=== PATIENT | female | born 1955 | race Caucasian/White ===

== ENCOUNTER 2016-08-20 08:37 | Outpatient (RCR) | payer OTHER ==
--- OUTSIDE RECORDS SUMMARY | 2016-08-20 08:40 | XMS REPORT | Continuity of Care Document ---
Author Author [facility] Organization [facility] Address Unknown Phone Unavailable Care Team Providers Care Process Helper Name Role Phone LAMONTE SCHAFER MD PCP Insurance Providers Payer Name Policy Number Subscriber Name Relationship [employer] [id number] Joseph Hull 20 Self / Same As Patient Problems No known problems or medical conditions. Medications No known medications. Social History Social History Problem Response Recorded Date/Time Recent Foreign Travel N [place] 07/12/2014 8:51am Hospital Discharge Instructions No hospital discharge instructions. Plan of Care No plan of care. Functional Status No functional status results. Allergies, Adverse Reactions, Alerts No known allergies. Immunizations No immunization records. Vital Signs No known vital signs results. Results Laboratory Results Test Name Result Units Flags Reference Collection Date/Time Result Date/ Time Comments White Blood Count 10.1 10^3/uL 4.3-11.0 07/12/2014 9:09am 07/12/2014 9: 13am Red Blood Count 4.85 10^6/uL 4.35-5.85 07/12/2014 9:09am 07/12/2014 9: 13am Hemoglobin 13.9 G/DL 11.5-16.0 07/12/2014 9:09am 07/12/2014 9:13am Hematocrit 42 % 35-52 07/12/2014 9:09am 07/12/2014 9:13am Mean Corpuscular Volume 86 FL 80-99 07/12/2014 9:0907/12/2014 9: 13am Mean Corpuscular Hemoglobin 29 PG 25-34 07/12/2014 9:0907/12/2014 9: 13am Mean Corpuscular Hemoglobin Concent 33 G/DL 32-36 07/12/2014 9:0908/2013 9:13am Red Cell Distribution Width 13.4 % 10.0-14.5 07/12/2014 9:092013 9:13am Platelet Count 281 10^3/uL 130-400 07/12/2014 9:07/12/2014 9:13am Mean Platelet Volume 10.7 FL H 7.4-10.4 07/12/2014 9:07/12/2014 9: 13am Neutrophils (%) (Auto) 77 % H 42-75 07/12/2014 9:07/12/2014 9:13am Lymphocytes (%) (Auto) 14 % 12-44 07/12/2014 9:07/12/2014 9:13am Monocytes (%) (Auto) 6 % 0-12 07/12/2014 9:07/12/2014 9:13am Eosinophils (%) (Auto) 3 % 0-10 07/12/2014 9:07/12/2014 9:13am Basophils (%) (Auto) 0 % 0-10 07/12/2014 9:07/12/2014 9:13am Neutrophils # (Auto) 7.8 X 10^3 1.8-7.8 07/12/2014 9:07/12/2014 9: 13am Lymphocytes # (Auto) 1.4 X 10^3 1.0-4.0 07/12/2014 9:07/12/2014 9: 13am Monocytes # (Auto) 0.6 X 10^3 0.0-1.0 07/12/2014 9:07/12/2014 9: 13am Eosinophils # (Auto) 0.3 10^3/uL 0.0-0.3 07/12/2014 9:0907/12/2014 9 :13am Basophils # (Auto) 0.0 10^3/uL 0.0-0.1 07/12/2014 9:07/12/2014 9: 13am Sodium Level 137 MMOL/L 135-145 07/12/2014 9:07/12/2014 9:53am Potassium Level 4.3 MMOL/L 3.6-5.0 07/12/2014 9:07/12/2014 9:53am Chloride Level 103 MMOL/L 98-107 07/12/2014 9:07/12/2014 9:53am Carbon Dioxide Level 25 MMOL/L 21-32 07/12/2014 9:07/12/2014 9: 53am Blood Urea Nitrogen 10 MG/DL 7-18 07/12/2014 9:07/12/2014 9:53am Creatinine 0.71 MG/DL 0.60-1.30 07/12/2014 9:07/12/2014 9:53am BUN/Creatinine Ratio 14 07/12/2014 9:07/12/2014 9:53am Estimat Glomerular Filtration Rate > 60 07/12/2014 9:2013 9:53am GFR INTERPRETIVE DATA UNITS FOR ESTIMATED GFR (eGFR): mL/min/1.73 M2 REFERENCE RANGE FOR ESTIMATED GFR (eGFR) eGFR NORMAL eGFR >60 MODERATELY DECREASED eGFR 30-59 SEVERLY DECREASED eGFR 15-29 KIDNEY FAILURE <15 (OR DIALYSIS) Glucose Level 175 MG/DL H 70-105 07/12/2014 9:07/12/2014 9:53am Calcium Level 9.5 MG/DL 8.5-10.1 07/12/2014 9:07/12/2014 9:53am Total Bilirubin 0.5 MG/DL 0.1-1.0 07/12/2014 9:07/12/2014 9:53am Alkaline Phosphatase 73 U/L 40-136 07/12/2014 9:07/12/2014 9:53am Aspartate Amino Transf (AST/SGOT) 17 U/L 5-34 07/12/2014 9:2013 9:53am Alanine Aminotransferase (ALT/SGPT) 33 U/L 0-55 07/12/2014 9:07/12 9:53am Total Protein 6.9 G/DL 6.4-8.2 07/12/2014 9:09am 07/12/2014 9:53am Albumin 4.1 G/DL 3.2-4.5 07/12/2014 9:09am 07/12/2014 9:53am Thyroid Stimulating Hormone (TSH) 1.00 UIU/ML 0.35-4.94 07/12/2014 9: 09am 07/12/2014 10:13am Ferritin 189 H NG/ML 15-150 07/12/2014 9:09am 07/13/2014 7:40am Iron Level 71 UG/DL 35-180 07/12/2014 9:09am 07/13/2014 7:40am Transferrin % Saturation 21 % 15-50 07/12/2014 9:09am 07/13/2014 7: 40am Total Iron Binding Capacity 337 UG/DL 280-380 07/12/2014 9:09am 2013 7:40am Procedures No known history of procedures. Encounters Encounter Location Date/Time Discharged Recurring [facility] 07/12/14 8:52am
[2016-08-20 09:06] LABS: BASOPHILS % (AUTO) 0 % (0-10); EOSINOPHILS # (AUTO) 0.3 10^3/uL (0.0-0.3); EOSINOPHILS % (AUTO) 3 % (0-10); LYMPHOCYTES # (AUTO) 1.7 X 10^3 (1.0-4.0); LYMPHOCYTES % (AUTO) 17 % (12-44); MEAN CORPUSCULAR HEMOGLOBIN 29 PG (25-34); MEAN CORPUSCULAR HGB CONC 33 G/DL (32-36); MEAN CORPUSCULAR VOLUME 86 FL (80-99); MEAN PLATELET VOLUME 10.6 FL (7.4-10.4); MONOCYTES # (AUTO) 0.7 X 10^3 (0.0-1.0); MONOCYTES % (AUTO) 7 % (0-12); NEUTROPHILS # (AUTO) 7.3 X 10^3 (1.8-7.8); NEUTROPHILS % (AUTO) 74 % (42-75); PLATELET COUNT 271 10^3/uL (130-400); RED BLOOD COUNT 4.75 10^6/uL (4.35-5.85); RED CELL DISTRIBUTION WIDTH 13.5 % (10.0-14.5); WHITE BLOOD COUNT 9.9 10^3/uL (4.3-11.0)
[2016-08-20 09:54] LABS: ALANINE AMINOTRANSFERASE 79 U/L (0-55); ALBUMIN 4.2 G/DL (3.2-4.5); ANION GAP 11 MMOL/L (5-14); ASPARTATE AMINO TRANSFERASE 64 U/L (5-34); BILIRUBIN,TOTAL 0.5 MG/DL (0.1-1.0); BLOOD UREA NITROGEN 9 MG/DL (7-18); BUN/CREATININE RATIO 11; CARBON DIOXIDE 25 MMOL/L (21-32); CHLORIDE 101 MMOL/L (98-107); CREATININE SERUM 0.79 MG/DL (0.60-1.30); GFR ESTIMATED > 60; GLUCOSE 272 MG/DL (70-105); POTASSIUM 4.4 MMOL/L (3.6-5.0); SODIUM 137 MMOL/L (135-145); TOTAL PROTEIN 6.8 G/DL (6.4-8.2)
[2016-08-20 10:13] LABS: THYROID STIMULATING HORMONE 2.03 UIU/ML (0.35-4.94)
== END 2016-11-18 | disposition home or self-care (01) ==
LOC: ONC 08:37
PROVIDERS: ATTEND Internal Medicine Hematology & Oncology
DX: Z08 Encounter for follow-up examination after completed treatment for malignant neoplasm (principal); Z85.3 Personal history of malignant neoplasm of breast; E89.0 Postprocedural hypothyroidism; E11.9 Type 2 diabetes mellitus without complications; F32.9 Major depressive disorder, single episode, unspecified; Z79.899 Other long term (current) drug therapy; Z92.21 Personal history of antineoplastic chemotherapy; Z92.3 Personal history of irradiation
CPT/HCPCS: 36415; 80053; 84443; 85025; 86300; 99213

== ENCOUNTER 2017-02-18 08:35 | Outpatient (RCR) | payer OTHER ==
[2017-02-18 09:00] LABS: BASOPHILS % (AUTO) 0 % (0-10); EOSINOPHILS # (AUTO) 0.3 10^3/uL (0.0-0.3); EOSINOPHILS % (AUTO) 3 % (0-10); LYMPHOCYTES # (AUTO) 1.9 X 10^3 (1.0-4.0); LYMPHOCYTES % (AUTO) 19 % (12-44); MEAN CORPUSCULAR HEMOGLOBIN 29 PG (25-34); MEAN CORPUSCULAR HGB CONC 33 G/DL (32-36); MEAN CORPUSCULAR VOLUME 88 FL (80-99); MEAN PLATELET VOLUME 10.8 FL (7.4-10.4); MONOCYTES # (AUTO) 0.6 X 10^3 (0.0-1.0); MONOCYTES % (AUTO) 6 % (0-12); NEUTROPHILS # (AUTO) 7.1 X 10^3 (1.8-7.8); NEUTROPHILS % (AUTO) 71 % (42-75); PLATELET COUNT 286 10^3/uL (130-400); RED BLOOD COUNT 4.63 10^6/uL (4.35-5.85); RED CELL DISTRIBUTION WIDTH 13.6 % (10.0-14.5)
[2017-02-18 09:33] LABS: ALANINE AMINOTRANSFERASE 27 U/L (0-55); ALBUMIN 4.1 GM/DL (3.2-4.5); ANION GAP 9 MMOL/L (5-14); ASPARTATE AMINO TRANSFERASE 20 U/L (5-34); BILIRUBIN,TOTAL 0.5 MG/DL (0.1-1.0); BLOOD UREA NITROGEN 9 MG/DL (7-18); BUN/CREATININE RATIO 12; CALCIUM 9.3 MG/DL (8.5-10.1); CARBON DIOXIDE 28 MMOL/L (21-32); CHLORIDE 103 MMOL/L (98-107); CREATININE SERUM 0.73 MG/DL (0.60-1.30); GFR ESTIMATED > 60; GLUCOSE 132 MG/DL (70-105); POTASSIUM 4.6 MMOL/L (3.6-5.0); SODIUM 140 MMOL/L (135-145)
[2017-02-18 09:53] LABS: THYROID STIMULATING HORMONE 0.39 UIU/ML (0.35-4.94)
== END 2017-05-11 | disposition home or self-care (01) ==
LOC: ONC 08:35
PROVIDERS: ATTEND Internal Medicine Hematology & Oncology
DX: Z08 Encounter for follow-up examination after completed treatment for malignant neoplasm (principal); Z85.3 Personal history of malignant neoplasm of breast; E89.0 Postprocedural hypothyroidism; E11.9 Type 2 diabetes mellitus without complications; F32.9 Major depressive disorder, single episode, unspecified; Z79.899 Other long term (current) drug therapy; Z92.21 Personal history of antineoplastic chemotherapy; Z92.3 Personal history of irradiation
CPT/HCPCS: 36415; 80053; 84443; 85025; 86300; 99213

== ENCOUNTER 2018-06-12 14:55 | Outpatient (RCR) | payer OTHER | END 2018-09-10 | disposition home or self-care (01) | LOC: ONC 14:55 | PROVIDERS: ATTEND Internal Medicine Hematology & Oncology | DX: Z08 Encounter for follow-up examination after completed treatment for malignant neoplasm (principal); Z85.3 Personal history of malignant neoplasm of breast; E89.0 Postprocedural hypothyroidism; E11.9 Type 2 diabetes mellitus without complications; F32.9 Major depressive disorder, single episode, unspecified; Z79.899 Other long term (current) drug therapy; Z92.21 Personal history of antineoplastic chemotherapy; Z92.3 Personal history of irradiation | CPT/HCPCS: 99213 ==

== ENCOUNTER → 2019-06-25 | Outpatient (CLI) | payer OTHER | LOC: EDSTATUS 09-11 16:58 → ONC 13:43 | PROVIDERS: ATTEND Internal Medicine Hematology & Oncology | DX: Z12.31 Encounter for screening mammogram for malignant neoplasm of breast (principal); C50.212 Malignant neoplasm of upper-inner quadrant of left female breast; E66.9 Obesity, unspecified; E11.9 Type 2 diabetes mellitus without complications; F32.9 Major depressive disorder, single episode, unspecified; Z90.89 Acquired absence of other organs | CPT/HCPCS: 99213 ==

== ENCOUNTER → 2020-09-22 | Outpatient (CLI) | payer OTHER | LOC: ONC 14:44 | PROVIDERS: ATTEND Internal Medicine Hematology & Oncology | DX: C50.912 Malignant neoplasm of unspecified site of left female breast (principal); Z90.10 Acquired absence of unspecified breast and nipple; F33.1 Major depressive disorder, recurrent, moderate; E11.9 Type 2 diabetes mellitus without complications; Z90.89 Acquired absence of other organs | CPT/HCPCS: 99213 ==

== ENCOUNTER → 2021-07-25 | Outpatient (CLI) | payer OTHER ==
[2021-07-25 09:56] LABS: BASOPHILS # (AUTO) 0.1 10^3/uL (0.0-0.1); BASOPHILS % (AUTO) 1 % (0-10); EOSINOPHILS # (AUTO) 0.4 10^3/uL (0.0-0.3); EOSINOPHILS % (AUTO) 4 % (0-10); HEMATOCRIT 40 % (35-52); HEMOGLOBIN 12.5 g/dL (11.5-16.0); LYMPHOCYTES # (AUTO) 3.2 10^3/uL (1.0-4.0); LYMPHOCYTES % (AUTO) 29 % (12-44); MEAN CORPUSCULAR HEMOGLOBIN 27 pg (25-34); MEAN CORPUSCULAR HGB CONC 32 g/dL (32-36); MEAN CORPUSCULAR VOLUME 86 fL (80-99); MEAN PLATELET VOLUME 10.6 fL (9.0-12.2); MONOCYTES # (AUTO) 0.9 10^3/uL (0.0-1.0); MONOCYTES % (AUTO) 8 % (0-12); NEUTROPHILS # (AUTO) 6.5 10^3/uL (1.8-7.8); NEUTROPHILS % (AUTO) 59 % (42-75); PLATELET COUNT 322 10^3/uL (130-400)
[2021-07-25 10:14] LABS: ALBUMIN 4.2 GM/DL (3.2-4.5); BILIRUBIN,TOTAL 0.3 MG/DL (0.1-1.0); CREATININE SERUM 0.7 MG/DL (0.60-1.30); TOTAL PROTEIN 6.9 GM/DL (6.4-8.2)
== END ==
LOC: ONC 09:46
PROVIDERS: ATTEND Internal Medicine Hematology & Oncology
DX: C50.912 Malignant neoplasm of unspecified site of left female breast (principal); Z92.21 Personal history of antineoplastic chemotherapy; E11.9 Type 2 diabetes mellitus without complications; E66.9 Obesity, unspecified; Z90.12 Acquired absence of left breast and nipple; Z90.89 Acquired absence of other organs
CPT/HCPCS: 80053; 85025; G0463; 99213

== ENCOUNTER → 2022-07-02 | Outpatient (CLI) | payer BC, OTHER ==
--- NOTE | 2022-07-02 12:49 | Diagnostic Imaging Report ---
INDICATION: Routine screening. COMPARISON: 06/23/2021 and 06/16/2020. TECHNIQUE: 2D and 3D bilateral screening mammography was performed with CAD. FINDINGS: Scattered fibroglandular densities are identified bilaterally. Scarring in the upper inner left breast is stable. The overall breast parenchymal pattern is stable. No mass or malignant-appearing microcalcifications are seen. There are benign calcifications present. There are multiple surgical clips in the left axilla. IMPRESSION: No mammographic features suspicious for malignancy are identified. ACR BI-RADS Category 2: Benign findings. Result letter will be mailed to the patient. Note: At least 10% of breast cancer is not imaged by mammography. Dictated by: Dictated on workstation # [id number]
== END ==
LOC: RAD 09:25
PROVIDERS: ATTEND Internal Medicine Hematology & Oncology
DX: Z12.31 Encounter for screening mammogram for malignant neoplasm of breast (principal)
CPT/HCPCS: 77063; 77067

== ENCOUNTER → 2022-07-13 | Outpatient (CLI) | payer BC ==
[2022-07-13 09:47] LABS: BASOPHILS # (AUTO) 0.1 10^3/uL (0.0-0.1); BASOPHILS % (AUTO) 1 % (0-10); EOSINOPHILS # (AUTO) 0.4 10^3/uL (0.0-0.3); EOSINOPHILS % (AUTO) 4 % (0-10); HEMATOCRIT 38 % (35-52); LYMPHOCYTES # (AUTO) 2.2 10^3/uL (1.0-4.0); LYMPHOCYTES % (AUTO) 23 % (12-44); MEAN CORPUSCULAR HEMOGLOBIN 26 pg (25-34); MEAN CORPUSCULAR HGB CONC 31 g/dL (32-36); MEAN CORPUSCULAR VOLUME 83 fL (80-99); MONOCYTES # (AUTO) 0.6 10^3/uL (0.0-1.0); MONOCYTES % (AUTO) 6 % (0-12); NEUTROPHILS # (AUTO) 6.2 10^3/uL (1.8-7.8); NEUTROPHILS % (AUTO) 66 % (42-75); PLATELET COUNT 310 10^3/uL (130-400); WHITE BLOOD COUNT 9.3 10^3/uL (4.3-11.0)
[2022-07-13 10:05] LABS: ALBUMIN 4.1 GM/DL (3.2-4.5); BILIRUBIN,TOTAL 0.3 MG/DL (0.1-1.0); CALCIUM 8.9 MG/DL (8.5-10.1); CREATININE SERUM 0.71 MG/DL (0.60-1.30); POTASSIUM 3.9 MMOL/L (3.6-5.0); TOTAL PROTEIN 6.6 GM/DL (6.4-8.2)
== END | disposition still patient (30) ==
LOC: ONC 09:21
PROVIDERS: ATTEND Internal Medicine Hematology & Oncology
DX: C50.912 Malignant neoplasm of unspecified site of left female breast (principal); E11.9 Type 2 diabetes mellitus without complications; Z90.89 Acquired absence of other organs; Z79.84 Long term (current) use of oral hypoglycemic drugs
CPT/HCPCS: 80053; 85025; G0463; 99213

== ENCOUNTER → 2023-07-08 | Outpatient (CLI) | payer MEDICARE ==
--- NOTE | 2023-07-08 13:00 | Diagnostic Imaging Report ---
INDICATION: Left breast carcinoma. COMPARISON: Correlation is made with the prior mammograms of 07/02/2022 and 06/23/2021. TECHNIQUE: 2D and 3D bilateral diagnostic mammography was performed with CAD. FINDINGS: Scattered fibroglandular densities are identified bilaterally. There are post therapeutic changes on the left. No mass or malignant-appearing microcalcifications are identified. The right axilla is unremarkable. The left axilla contains numerous surgical clips. IMPRESSION: No mammographic features suspicious for malignancy are identified. ACR BI-RADS Category 2: Benign findings. Result letter will be mailed to the patient. Note: At least 10% of breast cancer is not imaged by mammography. Dictated by: Dictated on workstation # [id number]
== END ==
LOC: RAD 12:18
PROVIDERS: ATTEND Internal Medicine Hematology & Oncology
DX: C50.912 Malignant neoplasm of unspecified site of left female breast (principal)
CPT/HCPCS: 77066; G0279; 77062

== ENCOUNTER → 2023-07-10 | Outpatient (CLI) | payer MEDICARE | LOC: ONC 09:02 | PROVIDERS: ATTEND Internal Medicine Hematology & Oncology | DX: C50.912 Malignant neoplasm of unspecified site of left female breast (principal); E11.9 Type 2 diabetes mellitus without complications; E66.9 Obesity, unspecified; Z90.89 Acquired absence of other organs | CPT/HCPCS: 99214 ==